=== PATIENT | male | born 1985 | race African-American/Black ===

== ENCOUNTER 2022-02-17 23:58 | Emergency (ER) | payer BC, OTHER ==
[2022-02-18 00:56] VITALS: RESP 20; TEMP 98.5; BMI 24.3
[2022-02-18] MEDS ORDERED: morphine CARPU-JECT 4 MG/1 ML DISP.SYRIN IVPUSH ONE (01:30)
[2022-02-18] MEDS ORDERED: morphine SULFATE 4 MG/ML VIAL ONE (01:33)
[2022-02-18 02:06] LABS: INR 0.98 (0.83-1.09); PROTHROMBIN TIME (PATIENT) 11.3 SEC (9.7-13.0)
[2022-02-18 02:09] LABS: ACTIVATED PTT 29.5 SECONDS (25.2-36.5)
[2022-02-18 02:11] LABS: HEMATOCRIT 48.9 % (35.4-49); HEMOGLOBIN 16.3 GM/dL (11.7-16.9); MCH 29.8 pg (25.7-33.7); MCHC 33.3 g/dl (32.0-35.9); MEAN CELL VOLUME 89.4 fl (80-96); MEAN PLT VOLUME 9.1 fl (7.5-11.1); PLATELET COUNT 270 10^3/uL (134-434); RBC 5.47 M/mm3 (4.00-5.60); RDW 12.6 % (11.9-15.9); WHITE BLOOD COUNT 14.9 K/mm3 (4.0-10.0)
[2022-02-18 02:13] LABS: ALBUMIN 4.4 g/dl (3.4-5.0); BLOOD UREA NITROGEN 16.6 mg/dL (7-18); CALCIUM 10.1 mg/dL (8.5-10.1)
[2022-02-18 02:16] LABS: CREATININE 0.9 mg/dL (0.55-1.3)
[2022-02-18 02:18] LABS: BILIRUBIN,TOTAL 0.5 mg/dL (0.2-1); TOT PROT 8.2 g/dl (6.4-8.2)
[2022-02-18] MEDS ORDERED: ACETAMINOPHEN 1000 MG/100 ML BAG IVPB ONE (03:27)
[2022-02-18] MEDS ORDERED: ACETAMINOPHEN INJECTION 100 ML IVPB ONE (03:51)
[2022-02-18] MEDS ORDERED: CEFAZOLIN 1 GM/D5W 1 GM/50 ML BAG IVPB ONE (04:19)
[2022-02-18] MEDS ORDERED: ceFAZolin SODIUM 1 GM VIAL ONE (04:26)
[2022-02-18 04:51] VITALS: BP 152/95; PULSE 96
== END 2022-02-18 04:51 | disposition short-term general hospital (02) ==
LOC: JER 23:58
PROC: 3E0333Z Introduction of Anti-inflammatory into Peripheral Vein, Percutaneous Approach (ICD-10-PCS; principal; 2022-02-17)
PROC: 3E03329 Introduction of Other Anti-infective into Peripheral Vein, Percutaneous Approach (ICD-10-PCS; 2022-02-17)
PROC: 3E033NZ Introduction of Analgesics, Hypnotics, Sedatives into Peripheral Vein, Percutaneous Approach (ICD-10-PCS; 2022-02-17)
DX: S02.602A Fracture of unspecified part of body of left mandible, initial encounter for closed fracture (principal); Y04.0XXA Assault by unarmed brawl or fight, initial encounter
CPT/HCPCS: 36415; 70450-TC; 70486-TC; 72125-TC; 80053; 85025; 85610; 85730; 86850; 86900; 86901; 93005; 93010; 99285-25; C9803-CS; U0003; U0005